=== PATIENT | female | born 1965 | race Caucasian/White ===

== ENCOUNTER 2020-01-31 18:16 | Inpatient (IN) | payer OTHER ==
[~2020-01-31] VITALS: Ht 167.6 cm; Wt 73.0 kg
[2020-01-31 20:13] VITALS: Ht 167.6 cm; Wt 73.0 kg
[2020-02-01 00:28] LABS: PLATELET COUNT 266 x10^3mcL (130-400)
[2020-02-01 00:33] LABS: RED CELL DISTRIBUTION WIDTH 17.1 % (11.5-14.5)
[2020-02-01 01:28] LABS: BILIRUBIN TOTAL 0.53 mg/dL (0.20-1.00); C REACTIVE PROTEIN 2.4 mg/dL (<=0.9); CALCIUM 8.3 mg/dL (8.5-10.1); CARBON DIOXIDE 26.8 mmol/L (21-32); TOTAL PROTEIN, SERUM 7.3 g/dL (6.4-8.2)
[2020-02-01 01:30] LABS: ALBUMIN 3.1 g/dL (3.4-5.0)
[2020-02-01 01:31] LABS: CREATININE SERUM 8.8 mg/dL (0.6-1.0)
[2020-02-01 06:43] VITALS: BP 114/69
[2020-02-01] MEDS ORDERED: HORIZANT300 MG PO (14:03)
[2020-02-01] MEDS ORDERED: XANAX0.25 MG (14:03)
[2020-02-01] MEDS ORDERED: MELATONIN1 MG (14:04)
[2020-02-01] MEDS ORDERED: CYMBALTA20 M1 (14:04)
[2020-02-02 07:21] LABS: BASOPHIL % 1.2 % (0.2-1.3); PLATELET COUNT 219 x10^3mcL (179-408)
[2020-02-02 07:37] LABS: CALCIUM 7.6 mg/dL (8.5-10.1); CARBON DIOXIDE 26.3 mmol/L (21-32); MAGNESIUM 2.9 mg/dL (1.8-2.4); PHOSPHOROUS 7.3 mg/dL (2.5-4.9)
[2020-02-02 07:44] LABS: POTASSIUM SERUM 5.9 mmol/L (3.5-5.1)
[2020-02-02 10:10] VITALS: BP 91/66
[2020-02-02 10:27] LABS: RED CELL DISTRIBUTION WIDTH 18.3 % (12.3-17.7)
[2020-02-02 12:00] VITALS: BP 140/84
[2020-02-02 15:50] VITALS: BP 127/57
[2020-02-02 16:12] VITALS: BP 91/66
[2020-02-02 16:47] VITALS: BP 133/83
[2020-02-02 21:14] VITALS: BP 135/73
[2020-02-03 04:48] VITALS: BP 136/75
[2020-02-03 06:55] LABS: BASOPHIL % 1.1 % (0.2-1.3); CARBON DIOXIDE 29.4 mmol/L (21-32); MAGNESIUM 2.4 mg/dL (1.8-2.4); PHOSPHOROUS 6.1 mg/dL (2.5-4.9); PLATELET COUNT 200 x10^3mcL (179-408); POTASSIUM SERUM 4.3 mmol/L (3.5-5.1)
[2020-02-03 06:57] LABS: CREATININE SERUM 6.7 mg/dL (0.6-1.0)
[2020-02-03 07:41] LABS: RED CELL DISTRIBUTION WIDTH 18.2 % (12.3-17.7)
[2020-02-03 08:53] VITALS: BP 139/71
[2020-02-03 11:54] VITALS: BP 138/62
== END 2020-02-03 14:45 | DRG 425 ==
LOC: ED 18:16 → DU 02-01 02:25
PROVIDERS: Emergency Medicine; ADMIT Hospitalist; ATTEND Hospitalist
PROC: 5A1D70Z Performance of Urinary Filtration, Intermittent, Less than 6 Hours Per Day (ICD-10-PCS; principal; 2020-02-02)
DX: E87.5 Hyperkalemia (principal); J96.01 Acute respiratory failure with hypoxia; N18.6 End stage renal disease; I12.0 Hypertensive chronic kidney disease with stage 5 chronic kidney disease or end stage renal disease; K21.9 Gastro-esophageal reflux disease without esophagitis; F41.9 Anxiety disorder, unspecified; Z20.828 Contact with and (suspected) exposure to other viral communicable diseases; R74.01 Elevation of levels of liver transaminase levels; D63.1 Anemia in chronic kidney disease; N25.81 Secondary hyperparathyroidism of renal origin; Z99.2 Dependence on renal dialysis; Z79.899 Other long term (current) drug therapy
CPT/HCPCS: 83880; 85378; 87804; G0378; J0610; J1644; J3535; J7626; U0003